=== PATIENT | male | born 1995 | race Caucasian/White ===

== ENCOUNTER 2016-10-23 03:29 | Emergency (ER) | payer OTHER ==
[2016-10-23 03:37] VITALS: BP 101/70; PULSE 101; RESP 14; TEMP 98.4; O2SAT 94
--- NOTE | 2016-10-23 04:03 | EDPHY ---
H & P Stated Complaint: "think I slipped a disk or crushed a vertebrae" Time Seen by Provider: 10/23/16 03:47 HPI/ROS: Chief complaint: Low back pain HPI: Patient states that he injured back when he jumped over a 4 foot fence earlier this evening. Patient states he 9 on both his heels and had pain in his back. He has been up and ambulating since that time. No numbness or weakness or tingling. No difficulty urinating. Is having some low back pain which is persisting. No fevers or chills. Does admit to drinking alcohol earlier this morning. Patient refused wheelchair and ambulated to the room without assistance. ROS: 10 point Review of Systems is negative except as noted in the HPI. Past medical history: None Medications: None Allergies: Amoxicillin Physical exam: Gen: Awake, Alert, No Distress HEENT: Nose: no rhinorrhea Eyes: PERRLA, EOMI Mouth: Moist mucosa Neck: Supple, no JVD Chest: nontender, lungs clear to auscultation Heart: S1, S2 normal, no murmur Abd: Soft, non-tender, no guarding Back: no CVA tenderness, no midline tenderness , no step-offs or deformities, mild lumbar paraspinal soft tissue tenderness Ext: no edema, non-tender Skin: no rash Neuro: CN II-XII intact, Sensation grossly intact, Strength 5/5 in bilateral upper and lower extremities - Personal History Current Tetanus/Diphtheria Vaccine: Yes - Medical/Surgical History Hx Asthma: No Hx Chronic Respiratory Disease: No Hx Diabetes: No Hx Cardiac Disease: No Hx Renal Disease: No Hx Cirrhosis: No Hx Alcoholism: Yes Hx HIV/AIDS: No Hx Splenectomy or Spleen Trauma: No Other PMH: PMHx: states he has lost weight d/t drinking too much, other substance abuse. PSHx: 2 L forearm, 2 r elbow, 1 foot - Social History Smoking Status: Current every day smoker Constitutional: Initial Vital Signs Temperature (C) 36.9 C 10/23/16 03:32 Heart Rate 101 H 10/23/16 03:32 Respiratory Rate 14 10/23/16 03:32 Blood Pressure 101/70 10/23/16 03:32 O2 Sat (%) 94 10/23/16 03:32 O2 Delivery Mode Room Air Allergies/Adverse Reactions: amoxicillin Allergy (Verified 10/23/16 03:32) Home Medications: Medication Instructions Recorded NK [No Known Home Meds] 10/23/16 Medical Decision Making ED Course/Re-evaluation: Patient presenting with low back pain after jumping over a fence. Lumbar x- rays were ordered. He is completely neurologically intact. Patient left emergency department against medical advice prior to obtaining x- rays. Departure - Departure Disposition: Against Medical Advice Clinical Impression: Back pain Referrals: [facility] [Other] - As per Instructions
== END 2016-10-23 03:57 | disposition left against medical advice (07) ==
DX: S39.92XA Unspecified injury of lower back, initial encounter (principal); F17.200 Nicotine dependence, unspecified, uncomplicated; X58.XXXA Exposure to other specified factors, initial encounter; Y99.8 Other external cause status; Y93.39 Activity, other involving climbing, rappelling and jumping off